=== PATIENT | female | born 1940 | race Caucasian/White ===

== ENCOUNTER → 2021-07-22 | Outpatient (CLI) | payer OTHER, MEDICARE | LOC: RAD 07:31 | PROVIDERS: ATTEND Internal Medicine | DX: R06.02 Shortness of breath (principal); R06.00 Dyspnea, unspecified ==

== ENCOUNTER → 2021-08-01 | Outpatient (CLI) | payer OTHER, MEDICARE | LOC: CAT 10:49 | PROVIDERS: ATTEND Internal Medicine | DX: J98.4 Other disorders of lung (principal); I25.10 Atherosclerotic heart disease of native coronary artery without angina pectoris; K44.9 Diaphragmatic hernia without obstruction or gangrene; M25.78 Osteophyte, vertebrae; Z77.018 Contact with and (suspected) exposure to other hazardous metals; J45.30 Mild persistent asthma, uncomplicated ==